=== PATIENT | male | born 2000 | race Caucasian/White ===

== ENCOUNTER → 2019-04-09 | Outpatient (CLI) | payer OTHER | LOC: COL.RAD 08:38 | DX: S42.292A Other displaced fracture of upper end of left humerus, initial encounter for closed fracture (principal); S43.432A Superior glenoid labrum lesion of left shoulder, initial encounter | CPT/HCPCS: A9585; Q9967 ==

== ENCOUNTER 2020-02-27 22:30 | Emergency (ER) | payer OTHER ==
[~2020-02-27] VITALS: Ht 182.9 cm; Wt 88.6 kg
[2020-02-27 22:43] VITALS: TEMP 98.5
[2020-02-27 23:40] VITALS: BP 113/57; PULSE 93
== END 2020-02-27 23:41 | disposition home or self-care (01) ==
LOC: COL.ER 22:30
DX: L76.22 Postprocedural hemorrhage of skin and subcutaneous tissue following other procedure (principal)